=== PATIENT | male | born 1990 | race Caucasian/White ===

== ENCOUNTER 2016-04-03 14:28 | Inpatient (IN) | payer OTHER ==
--- NOTE | ~2016-04-03 | HP ---
Unit #: [id number] #: [id number] Patient: DOMINIC GOEL [id number] [place] [address] [id number] I MR#: [id number] NAME: DOMINIC GOEL. ROOM: P207 Age: 25 Sex: M Admission Date: 04/03/2016 : 1990 Attending Physician: Joelle Huertas M.D. Admitting Physician: Joelle Huertas M.D. Primary Care Physician: Generic Doctor Not In System HISTORY AND PHYSICAL HISTORY OF PRESENT ILLNESS This is a 25-year-old male, admitted to [address] [place] [address] on 04/03/2016 for psychotic behavior and for drug abuse. Getting an accurate history and physical from the patient, due to his psychotic behaviors, some of his information was retrieved from the chart. PAST MEDICAL HISTORY None noted. PAST SURGICAL HISTORY None noted. SOCIAL HISTORY The patient is unemployed. He lives with his mother. He smokes one pack of cigarettes daily. He has a history of polysubstance abuse. FAMILY MEDICAL HISTORY Noncontributory. ALLERGIES No known drug allergies. CURRENT MEDICATIONS The patient is not on any home medications. REVIEW OF SYSTEMS The patient unable to answer questions about review of systems. PHYSICAL EXAMINATION GENERAL: He is in no acute distress. VITAL SIGNS: Temperature 97.6, heart rate 97, respirations 18, and blood pressure 138/93. HEIGHT: 6 feet 3 inches. WEIGHT: 177 pounds. SKIN: Warm and dry without rash or lesion. HEENT: Normocephalic. TMs not viewed. Oral and nasal passages clear. Conjunctivae clear. PERRLA. EOMs intact. NECK: Supple without lymphadenopathy or thyromegaly. HEART: Regular rate and rhythm without murmur. LUNGS: Clear. ABDOMEN: Soft, nontender. : Not done. Unit #: [id number] #: [id number] Patient: DOMINIC GOEL EXTREMITIES: No evidence of cyanosis, clubbing or edema. Moves all without focal deficit. NEUROLOGICAL: Grossly within normal limits. Cranial Nerves: II: Visual adler are intact. III, IV AND : Extraocular movements are intact. Pupils are equal, round and reactive to light. V: Facial sensation is grossly normal. VII: Facial movements and expression are normal. VIII: Auditory acuity grossly intact. IX, X: Uvula is midline. Phonation is normal. XI: Patient shrugs shoulders and turns head normally. XII: Tongue protrudes in the midline. Sensory and Motor Function: Sensory and motor sensation is grossly normal. Motor: moves all extremities well. Coordination: Gait is normal. Deep Tendon Reflexes: Intact. IMPRESSION 1. Psychiatric admission. 2. Nicotine dependence. 3. Polysubstance abuse. RECOMMENDATIONS Psychiatric, per psychiatrist. MEDICAL I see no contraindications to participating in facility's activities. MEDICAL PROGNOSIS Good. MEDICAL CONDITION Stable. Dictated by... Shruthi Cerrato TD: 04/04/2016 07:40 JOB #: [id number] HISTORY AND PHYSICAL X JENIFER LORENZ APRN HISTORY AND PHYSICAL
--- NOTE | ~2016-04-03 | PN ---
Unit #: [id number] #: [id number] Patient: DOMINIC GOEL [id number] [facility] [address] [place] [address] [id number] I MR#: [id number] NAME: DOMINIC GOEL ROOM: P207 Age: 25 Sex: M Admission Date: 04/03/2016 : 1990 Attending Physician: Joelle Huertas M.D. Admitting Physician: Joelle Huertas M.D. Primary Care Physician: Radha Doctor Not In System [facility] PROGRESS NOTES DATE OF SERVICE: 04/05/2016 SUBJECTIVE Mr. Goel is a 25-year-old white male, who was seen today and chart was reviewed and the case was discussed with the staff. He has been anxious and withdrawn, though has not shown any agitation or irritability and has been cooperative with the treatment recommendations as he has been taking the medications and tolerating them fairly well with no reported side effects. MENTAL STATUS EXAMINATION Young white male, who was casually dressed with a fair personal hygiene, appears to be in no acute distress or discomfort. He was awake and alert with impaired attention and concentration. His mood was anxious with a congruent affect. His speech was slow and tangential. His thought processes were disorganized with some looseness of associations and flight of ideas and paranoid ideations and delusional behavior. His insight and judgment remain significantly impaired. TREATMENT PLAN We will continue him on his current medications and we will monitor his response and make further adjustments as needed. Dictated by... Kyle Jha/eileen TD: 04/06/2016 14:56 JOB #: [id number] [facility] PROGRESS NOTES X Joelle Huertas MD PROGRESS NOTE
--- NOTE | ~2016-04-03 | PN ---
Unit #: [id number] #: [id number] Patient: DOMNIIC GOEL [id number] [facility] [address] [place] [address] [id number] I MR#: [id number] NAME: DOMINIC GOEL. ROOM: P207 Age: 25 Sex: M Admission Date: 04/03/2016 : 1990 Attending Physician: Joelle Huertas M.D. Admitting Physician: Joelle Huertas M.D. Primary Care Physician: Radha Doctor Not In System [facility] PROGRESS NOTES DATE OF SERVICE 04/06/2016 DISCUSSION Mr. Goel is a 25-year-old white male who was seen today. Chart was reviewed and case was discussed with the staff. He has been anxious, withdrawn, and rather seclusive to himself. Meanwhile, he has been cooperative with the treatment recommendations and has been taking the medications and tolerating them fairly well with no reported side effects. MENTAL STATUS EXAMINATION A young white male who is casually dressed with fair personal hygiene, appears to be in no acute distress or discomfort. He was awake and alert on interaction with intact orientation. His mood is anxious with a congruent affect. He denies any suicidal or homicidal ideations and also denies any auditory or visual hallucinations. His insight and judgment remain slightly impaired. TREATMENT PLAN 1. We will continue him on his current medications and treatment protocol. We will monitor his response to the medications and make further adjustments as needed. 2. We will continue to follow up. Dictated by... Kyle Jha/jamelg TD: 04/07/2016 15:12 JOB #: [id number] Unit #: [id number] #: [id number] Patient: DOMINIC GOEL [facility] PROGRESS NOTES X Joelle Huertas MD PROGRESS NOTE
--- NOTE | ~2016-04-03 | PN ---
Unit #: [id number] #: [id number] Patient: DOMINIC GOEL [id number] [facility] [address] [place] [address] [id number] I MR#: [id number] NAME: DOMINIC GOEL ROOM: P207 Age: 25 Sex: M Admission Date: 04/03/2016 : 1990 Attending Physician: Joelle Huertas M.D. Admitting Physician: Joelle Huertas M.D. Primary Care Physician: Radha Doctor Not In System [facility] PROGRESS NOTES DATE 04/09/2016 DISCUSSION Mr. Goel is a 25-year-old, white male who was seen today and chart was reviewed and case was discussed with the staff. He has been anxious, withdrawn and seclusive to himself. Meanwhile, he has been cooperative with the treatment recommendations. He has been taking the medication and tolerating them fairly well with no reported side effects. MENTAL STATUS EXAM Young white male who was casually dressed with fair personal hygiene, appears to be in no acute distress or discomfort. He was awake and alert on interaction with intact orientation. His mood was anxious with congruent affect. He denies any suicidal or homicidal ideation. Also, denies any auditory or visual hallucinations. His insight and judgement remains slightly impaired. TREATMENT PLAN We will continue him on his current medications and treatment protocol. We will monitor his response to medication and make further adjustments as needed. Dictated by... Kyle Jha/darci TD: 04/11/2016 21:10 JOB #: [id number] [facility] PROGRESS NOTES X Joelle Huertas MD PROGRESS NOTE
--- NOTE | ~2016-04-03 | PN ---
Unit #: [id number] #: [id number] Patient: DOMINIC GOEL [id number] [facility] [address] [place] [address] [id number] I MR#: [id number] NAME: DOMINIC GOEL. ROOM: P207 Age: 25 Sex: M Admission Date: 04/03/2016 : 1990 Attending Physician: Joelle Huertas M.D. Admitting Physician: Joelle Huertas M.D. Primary Care Physician: Radha Doctor Not In System [facility] PROGRESS NOTES DATE April 08, 2016 DISCUSSION Mr. Goel is a 25-year-old white male, with mood disorder and psychosis, who was seen today and chart was reviewed and the case was discussed with the staff. He has been anxious, withdrawn, and rather seclusive to himself. Meanwhile, he has been cooperative with the treatment recommendations and he has been taking the medications and tolerating them fairly well with no reported side effects. MENTAL STATUS EXAMINATION Young white male, who was casually dressed with fair personal hygiene and appears to be in no acute distress or discomfort. He was awake and alert on interaction with intact orientation. His mood is anxious with a congruent affect. He denies any suicidal or homicidal ideations, and also denies any auditory or visual hallucinations. His insight and judgment remain slightly impaired. TREATMENT PLAN We will continue him on his current medications and treatment protocol, and will monitor his response to the medications, and make further adjustments as needed. Dictated by... Kyle Jha/laci TD: 04/09/2016 08:35 JOB #: [id number] Unit #: [id number] #: [id number] Patient: DOMINIC GOEL [facility] PROGRESS NOTES X Joelle Huertas MD PROGRESS NOTE
--- NOTE | ~2016-04-03 | DS ---
Unit #: [id number] #: [id number] Patient: DOMINIC GOEL [id number] [facility] [address] [place] [address] [id number] I MR#: [id number] NAME: DOMINIC GOEL ROOM: P207 Age: 25 Sex: M Admission Date: 04/03/2016 : 1990 Discharge Date: 04/12/2016 Attending Physician: Joelle Huertas M.D. Primary Care Physician: Generic Doctor Not In System DISCHARGE SUMMARY IDENTIFYING DATA Mr. Goel is a 25-year-old single white male, who is a resident of [place], [place], and was brought to the hospital accompanied by his sister. DISCHARGE DIAGNOSES Psychiatric: Bipolar disorder, most recent episode depressed, recurrent, moderate, with psychosis; methamphetamine dependence, moderate; and psychostimulant dependence, moderate. Medical: None. Stressors: Moderate psychosocial stressors. HISTORY OF PRESENT ILLNESS Please see initial psychiatric evaluation for details. PAST PSYCHIATRIC HISTORY Please see initial psychiatric evaluation for details. PAST MEDICAL HISTORY Please see initial psychiatric evaluation for details. HOSPITAL COURSE The patient was [facility] and was oriented to the hospital environment. Routine p.r.n. medications were initiated, and he was started back on his home medications and medications were adjusted and upon initial presentation, the patient was seen to be acutely psychotic with bizarre behavior and spent the first night in the quiet room and then for the next few days, he was hardly able to talk to me at all or acknowledge me and was seen to be exhibiting significant psychosis, thought blocking, paranoia and delusional behavior. The Zyprexa which was started, he was taking it regularly and tolerating them fairly well and was able to show a slow, but therapeutic response to the medications and was willing to continue treatment on an outpatient basis and as such, it was decided that he will be discharged home and will continue treatment on an outpatient basis. DISCHARGE MEDICATIONS Zyprexa 10 mg b.i.d. for mood disorder. DISCHARGE CONDITION Stable. PROGNOSIS Unit #: [id number] #: [id number] Patient: DOMINIC GOEL Fair. Dictated by... Joelle Huertas M.D. IAA/modl TD: 04/13/2016 00:40 JOB #: [id number] DISCHARGE SUMMARY X Joelle Huertas MD DISCHARGE SUMMARY
--- NOTE | ~2016-04-03 | PN ---
Unit #: [id number] #: [id number] Patient: DOMINIC GOEL [id number] [facility] [address] [place] [address] [id number] I MR#: [id number] NAME: DOMINIC GOEL ROOM: P207 Age: 25 Sex: M Admission Date: 04/03/2016 : 1990 Attending Physician: Joelle Huertas M.D. Admitting Physician: Joelle Huertas M.D. Primary Care Physician: Generic Doctor Not In System [facility] PROGRESS NOTES DATE OF SERVICE 04/10/2016 DISCUSSION Mr. Goel is a 25-year-old white male who was seen today. Chart was reviewed and case was discussed with the staff. He has been anxious and withdrawn though has not shown any agitation or irritability and has been cooperative with treatment recommendations and has been taking the medications and tolerating them fairly well. MENTAL STATUS EXAMINATION Young white male who is casually dressed with fair personal hygiene, appears to be in no acute distress or discomfort. The patient was awake and alert on interaction with intact orientation. His mood is anxious with congruent affect. He denies any suicidal or homicidal ideations. His insight and judgment remain slightly impaired. TREATMENT PLAN We will continue him on his current medications and treatment protocol. We will monitor his response to medication and make further adjustments as needed. Dictated by... Kyle Jha/alex TD: 04/12/2016 06:56 JOB #: [id number] [facility] PROGRESS NOTES X Joelle Huertas MD X PROGRESS NOTE
--- NOTE | ~2016-04-03 | PN ---
Unit #: [id number] #: [id number] Patient: DOMINIC GOEL [id number] [facility] [address] [place] [address] [id number] I MR#: [id number] NAME: DOMINIC GOEL. ROOM: P207 Age: 25 Sex: M Admission Date: 04/03/2016 : 1990 Attending Physician: Joelle Huertas M.D. Admitting Physician: Joelle Huertas M.D. Primary Care Physician: Radha Doctor Not In System [facility] PROGRESS NOTES DATE OF SERVICE: 04/07/2016 SUBJECTIVE Mr. Goel is a 25-year-old white male, with mood disorder and psychosis, who was seen today and chart was reviewed and the case was discussed with the staff. He reports the patient has anxious, restless, withdrawn, disorganized. Meanwhile, he has been cooperative with treatment recommendation and has been taking the medications and tolerating them fairly well with no reported side effects. MENTAL STATUS EXAMINATION Young white male, who was casually dressed with a fair personal hygiene, appears to be in no acute distress or discomfort. He was awake and alert with impaired attention and concentration. His mood was anxious and depressed with a congruent affect. His speech was slow, restricted in content. He denies any suicidal or homicidal ideations and also denies any auditory or visual hallucinations. His insight and judgment remain slightly impaired. TREATMENT PLAN 1. We will continue him on his current medications and treatment protocol. We will monitor his response to medications and make further adjustments as needed. 2. We will continue to follow up. Dictated by... Kyle Jha/eileen TD: 04/08/2016 01:54 JOB #: [id number] Unit #: [id number] #: [id number] Patient: DOMINIC GOEL [facility] PROGRESS NOTES X Joelle Huertas MD PROGRESS NOTE
--- NOTE | ~2016-04-03 | PN ---
Unit #: [id number] #: [id number] Patient: DOMINIC GOEL [id number] [facility] [address] [place] [address] [id number] I MR#: [id number] NAME: DOMINIC GOEL ROOM: P207 Age: 25 Sex: M Admission Date: 04/03/2016 : 1990 Attending Physician: Joelle Huertas M.D. Admitting Physician: Joelle Huertas M.D. Primary Care Physician: Generic Doctor Not In System [facility] PROGRESS NOTES DATE OF SERVICE 04/04/2016 DISCUSSION Mr. Goel is a 25-year-old white male with mood disorder and psychosis and substance abuse who was seen today. Chart was reviewed and case was discussed with the staff who reported the patient had a rough night last night with persistent psychosis and slept in the quiet room after getting p.r.n. medications and has not been able to carry on meaningful conversation and appears to be significantly out of touch with reality and as such we will continue to monitor his response to treatment interventions. We will make further adjustments as needed. Dictated by... Joelle Huertas M.D. IAA/bzg TD: 04/06/2016 07:28 JOB #: [id number] [facility] PROGRESS NOTES X Joelle Huertas MD PROGRESS NOTE
--- NOTE | ~2016-04-03 | PN ---
Unit #: [id number] #: [id number] Patient: DOMINIC GOEL [id number] [facility] [address] [place] [address] [id number] I MR#: [id number] NAME: DOMINIC GOEL ROOM: P207 Age: 25 Sex: M Admission Date: 04/03/2016 : 1990 Attending Physician: Joelle Huertas M.D. Admitting Physician: Joelle Huertas M.D. Primary Care Physician: Radha Doctor Not In System [facility] PROGRESS NOTES DATE OF SERVICE: 04/11/2016 SUBJECTIVE Mr. Goel is a 25-year-old white male who was seen today and chart was reviewed, and case was discussed with the staff. He has been anxious, withdrawn, and rather seclusive to himself. Meanwhile, he has been cooperative with treatment recommendations and has been taking medications and tolerating them fairly well with no reported side effects. MENTAL STATUS EXAMINATION Young white male who was casually dressed with fair personal hygiene, appears to be in no acute distress or discomfort. He was awake and alert on interaction with intact orientation. His mood was anxious with a congruent affect. He denies any suicidal or homicidal ideation. His insight and judgment remain slightly impaired. TREATMENT PLAN 1. We will continue him on his current treatment protocol. We will monitor his response to medications and make further adjustments as needed. 2. We will continue to follow up. Dictated by... Kyle Jha/eileen TD: 04/12/2016 00:19 JOB #: [id number] [facility] PROGRESS NOTES X Joelle Huertas MD PROGRESS NOTE
--- NOTE | ~2016-04-03 | PA ---
Unit #: [id number] #: [id number] Patient: DOMINIC GOEL [id number] [facility] [address] [place] [address] [id number] I MR#: [id number] NAME: DOMINIC GOEL ROOM: P207 Age: 25 Sex: M Admission Date: 04/03/2016 : 1990 Date of Assessment: Attending Physician: Joelle Huertas M.D. Admitting Physician: Joelle Huertas M.D. Primary Care Physician: Generic Doctor Not In System PSYCHIATRIC ASSESSMENT DATE OF SERVICE 04/03/2016. IDENTIFYING DATA Mr. Goel is a 25-year-old single white male, who is a resident of [place], [place], and was brought to the hospital accompanied by his sister. CHIEF COMPLAINT "I thought I was crazy at first." HISTORY OF PRESENT ILLNESS Mr. Goel is a 25-year-old white male with history of substance abuse and mood disorder, who was brought to the hospital by his family with acute psychosis and was denying any symptoms at first and has a long history of substance abuse and dependence, and he stated "I thought I was crazy at first, something is wrong with me, I've been really sick." The patient was unable to give additional report due to mental status changes and acute confusion and psychosis and was seen to be confused and disoriented, and his sister, Frances, reported that the patient has been increasingly paranoid and delusional and he believes that his drinks are being poisoned and he thinks that he is being watched and monitored and thinks someone is out to get his family and calls his mother multiple times everyday asking if she is okay and he barricaded himself in his room and he believes that people are listening to him through the air vents and he has been talking to himself and acting bizarre. When family arrived, he wrote on his form that he was guilty of child molestation and that he has never said that before and there are no children that he has contact with and he has had these types of delusions at times and that he is guilty of a crime and that he has been using multiple substances for years and he has a history of using heroin with multiple overdoses in the past, and it also appears that he has been more recently using some meth and bath salt, which has led to acute substance-induced psychosis. He was seen to be acutely psychotic, agitated, and aggressive upon presentation to the unit and had to be put in seclusion and was put in a therapeutic hold for safety purposes and then he was able to calm himself down. SUBSTANCE ABUSE HISTORY The patient has an extensive history of substance abuse and dependence including alcohol, cannabis, cocaine, acid, opioids, amphetamines, benzodiazepines, and methadone and currently, it appears that he has been using methamphetamine and bath salt on a regular basis. Unit #: [id number] #: [id number] Patient: DOMINIC GOEL PAST PSYCHIATRIC HISTORY The patient has had a history of inpatient psychiatric hospitalization at [facility], and review of the medical records indicate that currently he is not active in any treatment program, is not seeing a psychiatrist, and is not taking any psychotropic medications. PAST MEDICAL HISTORY No acute or chronic medical illnesses. ALLERGIES No known medication allergies. CURRENT MEDICATIONS None. PERSONAL AND SOCIAL HISTORY A 25-year-old white male, who reports that he is single, unemployed, and lives at home with his mother and has fairly decent social support system. MENTAL STATUS EXAMINATION Young white male, who was casually dressed with fair personal hygiene, appears to be in no acute distress or discomfort. He was awake and alert on interaction with intact orientation to time, place, and person. His mood was anxious and depressed with a congruent affect. His speech was slow and restricted in content. His thought processes were disorganized with some looseness of associations, paranoid ideations, and delusional behavior. His insight and judgment remain significantly impaired. DIAGNOSTIC IMPRESSION Psychiatric: Bipolar disorder, most recent episode depressed, recurrent, moderate, with psychosis; methamphetamine dependence, moderate; and psychostimulant dependence, moderate. Medical: None. Stressors: Moderate psychosocial stressors. TREATMENT PLAN 1. The patient has presented with a history of mood disorder and psychosis and has been decompensating and will need inpatient hospitalization for safety and stabilization. We will start him back on his home medications and we will adjust the medications and monitor response. 2. Supportive therapy was provided to the patient. ESTIMATED LENGTH OF STAY 5 to 7 days. ABILITY TO HELP SELF Limited. WILLINGNESS TO HELP SELF The patient appears to be willing to help self. STRENGTHS 1. Communicative. 2. Cooperative. PROBLEMS 1. Chronic dysphoric symptoms. 2. Chronic chemical dependency. Unit #: [id number] #: [id number] Patient: DOMINIC GOEL 3. Poor social support system. DISCHARGE CRITERIA This will be contingent upon the patient's ability to show resolution of his depression and psychosis and his ability to stay safe to himself, particularly after discharge from the hospital. Dictated by... Kyle Jha/eileen TD: 04/04/2016 09:28 JOB #: [id number] PSYCHIATRIC ASSESSMENT X Joelle Huertas MD X PSYCHIATRIC ASSESSMENT
[~2016-04-03 14:28] MED LIST: AMOXIL500 M1 PO; NO MEDICATIONS; XYLOCAINE20 ML 2% V EXT
[2016-04-05 12:32] LABS: BASOPHIL% 0.3 % (0-2.5); EOSINOPHIL# 0.1 X10e3 (0-0.7); EOSINOPHIL% 1.7 % (0.0-7.0); LYMPHOCYTE# 2.1 X10e3 (1.0-3.5); LYMPHOCYTE% 33.9 % (17.0-45.0); MEAN CELL VOLUME 82.8 FL (83-96); MEAN CORPUSCULAR HGB CONC 32.6 g/dL (30-36); MEAN PLATELET VOLUME 9.7 FL (6.5-11.5); MONOCYTE# 0.4 X10e3 (0-1.0); MONOCYTE% 7.2 % (3.0-12.0); NEUTROPHIL# 3.5 X10e3 (1.5-7.1); NEUTROPHIL% 56.9 % (40-75); PLATELET COUNT 320 X10e3 (140-420); RED BLOOD COUNT 5.19 X10e (3.90-5.60); RED CELL DISTRIBUTION WIDTH 15.3 % (11.0-15.5); WHITE BLOOD COUNT 6.2 X10e3 (4.0-10.5)
[2016-04-05 12:40] LABS: DIFF IND NO
[2016-04-05 12:47] LABS: ALBUMIN SERUM 4.3 g/dL (3.5-5.0); ALKALINE PHOSPHATASE 56 U/L (32-92); ALT (SGPT) 49 U/L (10-40); AST (SGOT) 46 U/L (10-42); BILIRUBIN,TOTAL 0.7 mg/dL (0.2-2.0); BLOOD UREA NITROGEN 16 mg/dL (9-23); BUN/CREATININE RATIO 22.85; CALCIUM SERUM 9.8 mg/dL (8.4-10.2); CARBON DIOXIDE 27 mmol/L (22-31); CHLORIDE 104 mmol/L (100-111); CREATININE SERUM 0.7 mg/dL (0.6-1.4); GLOM FILT RATE Estimated ABOVE60 mL/min (>60); GLUCOSE FASTING 90 mg/dL (70-110); POTASSIUM 4.7 mmol/L (3.5-5.1); PROTEIN TOTAL SERUM 7.6 g/dL (6.0-8.3); SODIUM 138 mmol/L (135-145)
[2016-04-05 12:51] LABS: THYROID STIMULATING HORMONE 0.62 uIU/ml (0.34-5.60)
[2016-04-05 12:57] LABS: FREE THYROXIN (T4) 0.91 ng/dL (0.58-1.64)
[2016-04-06 10:12] LABS: URINE APPEARANCE TURBID; URINE BILIRUBIN NEG (NEG); URINE BLOOD NEG (NEG); URINE COLOR YELLOW; URINE GLUCOSE NEG (NEG); URINE KETONE NEG (NEG); URINE LEUKOCYTE ESTERASE NEG (NEG); URINE NITRATE NEG (NEG); URINE PROTEIN NEG (NEG); URINE SPECIFIC GRAVITY 1.024 (1.003-1.035); URINE UROBILINOGEN 0.2 MG/DL (NEG)
[2016-04-06 10:44] LABS: AMPHETAMINE POS (NEG); BARBITURATES NEG (NEG); BENZODIAZEPINES NEG (NEG); COCAINE NEG (NEG); MARIJUANA POS (NEG); OPIATES NEG (NEG); TRICYCLIC ANTIDEPRESSANTS NEG (NEG); U METHADONE NEG (NEG)
== END 2016-04-12 10:45 | DRG 885 ==
LOC: P2S 14:28
PROVIDERS: Psychiatry & Neurology Psychiatry
DX: F31.32 Bipolar disorder, current episode depressed, moderate (principal); F15.20 Other stimulant dependence, uncomplicated; F20.0 Paranoid schizophrenia; Z56.0 Unemployment, unspecified; F17.200 Nicotine dependence, unspecified, uncomplicated
CPT/HCPCS: 80053; 80307; 81003; 84439; 84443; 85025; J1200; J1630

== ENCOUNTER 2016-04-15 20:17 | Inpatient (IN) | payer OTHER ==
--- NOTE | ~2016-04-15 | HP ---
Unit #: [id number] #: [id number] Patient: DOMINIC GOEL [id number] [facility] [address] [place] [address] [id number] I MR#: [id number] NAME: DOMINIC GOEL ROOM: P183 Age: 25 Sex: M Admission Date: 04/15/2016 : 1990 Attending Physician: Joelle Huertas M.D. Admitting Physician: Joelle Huertas M.D. Primary Care Physician: Generic Doctor Not In System HISTORY AND PHYSICAL HISTORY OF PRESENT ILLNESS The patient is a 25-year-old male admitted on on 04/15/2016 for paranoia and psychosis. The patient had a recent admission on 04/03/2016 where a full history and physical was completed. That history and physical has been reviewed. No changes need to be made. Dictated by... Shruthi Cerrato/darci TD: 04/18/2016 00:21 JOB #: [id number] HISTORY AND PHYSICAL X JENIFER LORENZ APRN HISTORY AND PHYSICAL
--- NOTE | ~2016-04-15 | PN ---
Unit #: [id number] #: [id number] Patient: DOMINIC GOEL [id number] [facility] [address] [place] [address] [id number] I MR#: [id number] NAME: DOMINIC GOEL ROOM: P122 Age: 25 Sex: M Admission Date: 04/15/2016 : 1990 Attending Physician: Joelle Huertas M.D. Admitting Physician: Joelle Huertas M.D. Primary Care Physician: Generic Doctor Not In System [facility] PROGRESS NOTES DATE OF SERVICE 04/20/2016 DISCUSSION Mr. Goel is a white male who was seen today. Chart was reviewed and case was discussed with the staff. He has been anxious, withdrawn, and rather seclusive to himself. Meanwhile, he has been cooperative with treatment recommendations. He has been taking the medications and tolerating them fairly well. MENTAL STATUS EXAMINATION Young white male who is casually dressed with fair personal hygiene and appears to be in no acute distress or discomfort. He was awake and alert on interaction with intact orientation. His mood is anxious with a congruent affect. He denies any suicidal or homicidal ideations and also denies any auditory or visual hallucinations. His insight and judgment remain slightly impaired. TREATMENT PLAN We will continue him on his current medications and treatment protocol. We will monitor his response and make further adjustments as needed. Dictated by... Joelle Huertas M.D. IAA/jamelg TD: 04/21/2016 10:36 JOB #: [id number] [facility] PROGRESS NOTES X Joelle Huertas MD PROGRESS NOTE
--- NOTE | ~2016-04-15 | PA ---
Unit #: [id number] #: [id number] Patient: DOMINIC GOEL [id number] [facility] [address] [place] [address] [id number] I MR#: [id number] NAME: DOMINIC GOEL ROOM: P183 Age: 25 Sex: M Admission Date: 04/15/2016 : 1990 Date of Assessment: 04/15/2016 Attending Physician: Joelle Huertas M.D. Admitting Physician: Joelle Huertas M.D. Primary Care Physician: Generic Doctor Not In System PSYCHIATRIC ASSESSMENT DATE OF SERVICE 04/16/2016. IDENTIFYING DATA Mr. Goel is a 25-year-old single white male, who is a resident of [place], [place], and is known to us from previous encounter, was recently discharged from my care and was self-referred back to the hospital. CHIEF COMPLAINT "I came here today because I could not get my medication filled." HISTORY OF PRESENT ILLNESS Mr. Goel is a 25-year-old white male with dual diagnosis of bipolar disorder and methamphetamine dependence, who was recently hospitalized under my care with acute psychosis and was stabilized on Zyprexa; however, since he got out of the hospital, he stated that his [employer] refused to fill his prescription, and once his medicines wore off, he relapsed on methamphetamine that was given to him by a friend and reports that he used methamphetamine yesterday and again earlier in the week and was seen to be paranoid stating that he feels paradoxical and reporting that he feels like he does not feel like he deserves what he is going to get and believes that his mother and stepfather are not really due to the way they are acting and reports that he has been paranoid for a longtime and reported that he did a little bit of ice yesterday and reports that he smoked it "I took a big hit and flushed the rest down in the toilet." The patient reports that the medicine was working and it was blocking his "meth high." He reports that he believes that "we are going to fail him." He also stated that the doctors are denying me to be healthy, "I know what I read is real now, I need my medicine." The patient believed that his medicine is a miracle cure and does not understand why would his insurance deny it. SUBSTANCE ABUSE HISTORY The patient reports history of experimentation with cannabis, opioids, methamphetamine, and benzodiazepine abuse, and more recently, methamphetamine has been his drug of choice. PAST PSYCHIATRIC HISTORY The patient has had a history of multiple inpatient psychiatric hospitalizations at [facility] and other facilities and has been diagnosed and treated for schizoaffective bipolar and currently is supposed to be on Zyprexa, but has not been able to get his medications Unit #: [id number] #: [id number] Patient: DOMINIC GOEL filled and as such has been decompensating. PAST MEDICAL HISTORY The patient's medical history is insignificant. ALLERGIES No known medication allergies. PERSONAL AND SOCIAL HISTORY A 25-year-old white male, who reports that he lives at home with his mother and stepfather and is unemployed and is single and has never been and has no children and has poor social support system. MENTAL STATUS EXAMINATION Young white male, who was casually dressed with fair personal hygiene, appears to be in no acute distress or discomfort. He was awake and alert on interaction with intact orientation to time, place, and person. His mood was anxious and depressed with a congruent affect. His speech was slow and restricted in content. His thought processes were disorganized with some looseness of associations and flight of ideas and paranoid ideations and delusional behavior. His insight and judgment remain significantly impaired. DIAGNOSTIC IMPRESSION Psychiatric: Schizoaffective disorder, bipolar type, most recent episode depressed, recurrent, moderate, with psychosis and methamphetamine dependence, moderate. Medical: None. Stressors: Moderate psychosocial stressors. TREATMENT PLAN 1. The patient has presented with a history of substance abuse and mood disorder and psychosis and has been decompensating and will need inpatient hospitalization for safety and stabilization. We will start him back on his home medications and we will monitor response and make further adjustments as needed. 2. Supportive therapy was provided to the patient. 3. Safe, structured, and nourishing environment will be provided. ESTIMATED LENGTH OF STAY 5 to 7 days. ABILITY TO HELP SELF Limited. WILLINGNESS TO HELP SELF The patient appears to be willing to help self. STRENGTHS 1. Communicative. 2. Cooperative. PROBLEMS 1. Chronic dysphoric symptoms. 2. Chronic chemical dependency. 3. Poor social support system. DISCHARGE CRITERIA This will be contingent upon the patient's ability to show resolution of Unit #: [id number] #: [id number] Patient: DOMINIC GOEL his depression and psychosis and his ability to stay safe to himself, particularly after discharge from the hospital. Dictated by... Kyle Jha/eileen TD: 04/16/2016 11:48 JOB #: [id number] PSYCHIATRIC ASSESSMENT X Joelle Huertas MD X PSYCHIATRIC ASSESSMENT
--- NOTE | ~2016-04-15 | PN ---
Unit #: [id number] #: [id number] Patient: DOMINIC GOEL [id number] [facility] [address] [place] [address] [id number] MR#: [id number] NAME: DOMINIC GOEL ROOM: P122 Age: 25 Sex: M Admission Date: 04/15/2016 : 1990 Attending Physician: Joelle Huertas M.D. Admitting Physician: Joelle Huertas M.D. Primary Care Physician: Radha Doctor Not In System [facility] PROGRESS NOTES DATE OF SERVICE: 04/18/2016 SUBJECTIVE Mr. Goel is a 25-year-old white male with mood disorder and psychosis, who was seen today and chart was reviewed, and case was discussed with the staff. He remains anxious, withdrawn, disorganized, and seclusive to himself with blunted affect and slow to respond with significant thought blocking and paranoia. Meanwhile, he has been taking the medications and tolerating them fairly well. MENTAL STATUS EXAMINATION Young white male who was casually dressed with fair personal hygiene, appears to be in no acute distress or discomfort. He was awake and alert with impaired attention and concentration. His mood was anxious and depressed with a congruent affect. His speech was slow and restricted in content. He reports having suicidal ideation, but denies any homicidal ideations. His thought processes were disorganized with some looseness of associations, paranoid ideations, and delusional behavior. His insight and judgment remain significantly impaired. TREATMENT PLAN 1. We will continue him on his current medications and treatment protocol. We will monitor his response to medications and make further adjustments as needed. 2. We will continue to follow up. Dictated by... Kyle Jha/eileen TD: 04/20/2016 06:53 JOB #: [id number] Unit #: [id number] #: [id number] Patient: DOMINIC GOEL PROGRESS NOTES X Joelle Huertas MD PROGRESS NOTE
--- NOTE | ~2016-04-15 | DS ---
Unit #: [id number] #: [id number] Patient: DOMINIC GOEL [id number] [facility] [address] [place] [address] [id number] I MR#: [id number] NAME: DOMINIC GOEL. ROOM: P122 Age: 25 Sex: M Admission Date: 04/15/2016 : 1990 Discharge Date: 04/20/2016 Attending Physician: Joelle Huertas M.D. Primary Care Physician: Generic Doctor Not In System DISCHARGE SUMMARY IDENTIFYING DATA Mr. Goel is a 25-year-old white male who is known to us from previous encounter, and was self-referred to the hospital. DISCHARGE DIAGNOSES Psychiatric: Bipolar disorder, most recent episode depressed, recurrent, moderate, with psychosis; methenamine dependence, moderate. Medical: None. Stressors: Moderate psychosocial stressors. HISTORY OF PRESENT ILLNESS Please see initial psychiatric evaluation for details. PAST PSYCHIATRIC HISTORY Please see initial psychiatric evaluation for details. PAST MEDICAL HISTORY Please see initial psychiatric evaluation for details. HOSPITAL COURSE The patient was [facility] and was oriented to the hospital environment. Routine p.r.n. medications were initiated and started back on his home medications leave against medical advice. DISCHARGE MEDICATIONS None. DISCHARGE CONDITION Stable. PROGNOSIS Guarded. Dictated by... Kyle Jha/syedal TD: 05/31/2016 13:28 JOB #: [id number] Unit #: [id number] #: [id number] Patient: DOMINIC GOEL DISCHARGE SUMMARY Page 1 of 1 X Joelle Huertas MD DISCHARGE SUMMARY
--- NOTE | ~2016-04-15 | PN ---
Unit #: [id number] #: [id number] Patient: DOMINIC GOEL [id number] [facility] [address] [place] [address] [id number] I MR#: [id number] NAME: DOMINIC GOEL ROOM: P122 Age: 25 Sex: M Admission Date: 04/15/2016 : 1990 Attending Physician: Joelle Huertas M.D. Admitting Physician: Joelle Huertas M.D. Primary Care Physician: Radha Doctor Not In System [facility] PROGRESS NOTES DATE OF SERVICE: 04/17/2016 SUBJECTIVE Mr. Goel is a 25-year-old white male who was seen today and chart was reviewed, and case was discussed with the staff. He appears to be doing fairly well and has been taking medication and tolerating them fairly well with no reported side effects. Meanwhile, he has been taking the medications and tolerating them fairly well with no reported side effects. MENTAL STATUS EXAMINATION Young white male who was casually dressed with fair personal hygiene, appears to be in no acute distress or discomfort. He was awake and alert on interaction with intact orientation. His mood was anxious with a congruent affect. He denies any suicidal or homicidal ideation. His insight and judgment remain slightly impaired. TREATMENT PLAN 1. We will continue him on his current medications and treatment protocol. We will monitor his response and make further adjustments as needed. 2. We will continue to follow up. Dictated by... Kyle Jha/eileen TD: 04/19/2016 02:05 JOB #: [id number] [facility] PROGRESS NOTES X Joelle Huertas MD PROGRESS NOTE
--- NOTE | ~2016-04-15 | PN ---
Unit #: [id number] #: [id number] Patient: DOMINIC GOEL [id number] [facility] [address] [place] [address] [id number] I MR#: [id number] NAME: DOMINIC GOEL ROOM: P122 Age: 25 Sex: M Admission Date: 04/15/2016 : 1990 Attending Physician: Joelle Huertas M.D. Admitting Physician: Joelle Huertas M.D. Primary Care Physician: Generic Doctor Not In System [facility] PROGRESS NOTES DATE OF SERVICE: 04/19/2016 SUBJECTIVE Mr. Goel is a 25-year-old white male with mood disorder and psychosis, who was seen today and chart was reviewed, and case was discussed with the staff. He has been anxious, withdrawn, and rather seclusive to himself. Meanwhile, he has been taking the medications and tolerating them fairly well. We will continue him on his current medications and monitor. Dictated by... Kyle Jha/eileen TD: 04/21/2016 07:15 JOB #: [id number] [facility] PROGRESS NOTES X Joelle Huertas MD PROGRESS NOTE
[2016-04-18 13:31] LABS: AMPHETAMINE POS (NEG); BARBITURATES NEG (NEG); BENZODIAZEPINES NEG (NEG); COCAINE NEG (NEG); MARIJUANA POS (NEG); OPIATES NEG (NEG); TRICYCLIC ANTIDEPRESSANTS NEG (NEG); U METHADONE NEG (NEG)
== END 2016-04-20 14:45 | disposition home or self-care (01) | DRG 885 ==
LOC: P1E 20:17 → P1S 04-18 16:12
PROVIDERS: Psychiatry & Neurology Psychiatry
DX: F25.0 Schizoaffective disorder, bipolar type (principal); F15.20 Other stimulant dependence, uncomplicated; R45.851 Suicidal ideations; F31.32 Bipolar disorder, current episode depressed, moderate; F29 Unspecified psychosis not due to a substance or known physiological condition
CPT/HCPCS: 80307

== ENCOUNTER 2016-04-28 14:47 | Inpatient (IN) | payer OTHER ==
--- NOTE | ~2016-04-28 | PN ---
Unit #: [id number] #: [id number] Patient: DOMINIC GOEL [id number] [facility] [address] [place] [address] [id number] MR#: [id number] NAME: DOMINIC GOEL. ROOM: P132 Age: 25 Sex: M Admission Date: 04/28/2016 : 1990 Attending Physician: Joelle Huertas M.D. Admitting Physician: Joelle Huertas M.D. Primary Care Physician: Generic Doctor Not In System [facility] PROGRESS NOTES DATE May 02, 2016 DISCUSSION Mr. Goel was seen today and chart was reviewed and the case was discussed with the staff. He has been anxious, withdrawn, but has not shown any agitation, irritability, of behavioral problems and he has been calm and cooperative with the treatment recommendations. He has been anxious, withdrawn, and disorganized and with persistent psychosis. MENTAL STATUS EXAMINATION Young white male, who was casually dressed with fair personal hygiene and appears to be in no acute distress or discomfort. He was awake and alert with impaired attention and concentration. His mood is anxious with a congruent affect. His speech is slow and restricted in content. His thought processes are disorganized with some looseness of associations and paranoid ideations. His insight and judgment remain significantly impaired. TREATMENT PLAN 1. We will continue him on his current medications and treatment protocol, and will monitor his response, and make further adjustments as needed. 2. We will continue to followup. Dictated by... Kyle Jha/laci TD: 05/03/2016 12:44 JOB #: [id number] Unit #: [id number] #: [id number] Patient: DOMINIC GOEL [facility] PROGRESS NOTES Page 1 of 1 X Joelle Huertas MD PROGRESS NOTE
--- NOTE | ~2016-04-28 | DS ---
Unit #: [id number] #: [id number] Patient: DOMINIC GOEL [id number] [facility] [address] [place] [address] [id number] I MR#: [id number] NAME: DOMINIC GOEL. ROOM: P132 Age: 25 Sex: M Admission Date: 04/28/2016 : 1990 Discharge Date: 05/03/2016 Attending Physician: Joelle Huertas M.D. Primary Care Physician: Generic Doctor Not In System DISCHARGE SUMMARY IDENTIFYING DATA Mr. Goel is a 25-year-old single white male, who is a resident of [place], [place], and is known to us from previous encounter, was recently discharged from my care and was transferred back to us. DISCHARGE DIAGNOSES Psychiatric: Schizoaffective disorder, bipolar type, most recent episode manic with psychosis; methamphetamine dependence, moderate. Medical: None. Stressors: Moderate psychosocial stressors. HISTORY OF PRESENT ILLNESS Please see initial psychiatric evaluation for details. PAST PSYCHIATRIC HISTORY Please see initial psychiatric evaluation for details. PAST MEDICAL HISTORY Please see initial psychiatric evaluation for details. HOSPITAL COURSE The patient [facility] and was oriented to the hospital environment. Routine p.r.n. medications were initiated and he was started back on home and medications were adjusted and due to his history of poor compliance with medication leading to rapid decompensation, it was decided that he will be a candidate for long-acting injectable antipsychotic, and since he has only been on Risperdal without any allergic reaction, it was decided that he will be started on Invega Sustenna and loading doses were initiated and he was seen to be doing fairly well and was calm and cooperative with treatment recommendation and was taking medications regularly and was tolerating them fairly well and as such, it was decided that he will be discharged home and will continue treatment on an outpatient basis. DISCHARGE MEDICATIONS Invega Sustenna 156 mg intramuscular once a month. DISCHARGE CONDITION Stable. PROGNOSIS Fair. Unit #: [id number] #: [id number] Patient: DOMINIC GOEL Dictated by... Joelle Huertas M.D. IAA/modl TD: 05/03/2016 23:50 JOB #: [id number] DISCHARGE SUMMARY Page 1 of 1 X Joelle Huertas MD DISCHARGE SUMMARY
--- NOTE | ~2016-04-28 | HP ---
Unit #: [id number] #: [id number] Patient: DOMINIC GOEL [id number] [facility] [address] [place] [address] [id number] MR#: [id number] NAME: DOMINIC GOEL ROOM: P132 Age: 25 Sex: M Admission Date: 04/28/2016 : 1990 Attending Physician: Joelle Huertas M.D. Admitting Physician: Joelle Huertas M.D. Primary Care Physician: Generic Doctor Not In System HISTORY AND PHYSICAL HISTORY OF PRESENT ILLNESS The patient is a 25 year old admitted to [address] [place] [address] with psychotic behavior. He is a poor historian, so his history is taken from his chart. The patient was seen and H and P dated 04/04/2016 was reviewed. This is current. No changes. Please see H and P dated 04/04/2016. Dictated by... Martine Joy P.A.-C. for Kyle Avila/alex TD: 04/30/2016 11:21 JOB #: [id number] HISTORY AND PHYSICAL X Martine Joy HISTORY AND PHYSICAL
--- NOTE | ~2016-04-28 | PN ---
Unit #: [id number] #: [id number] Patient: DOMINIC GOEL [id number] [facility] [address] [place] [address] [id number] I MR#: [id number] NAME: DOMINIC GOEL ROOM: P132 Age: 25 Sex: M Admission Date: 04/28/2016 : 1990 Attending Physician: Joelle Huertas M.D. Admitting Physician: Joelle Huertas M.D. Primary Care Physician: Radha Doctor Not In System [facility] PROGRESS NOTES DATE OF SERVICE: 04/29/2016 SUBJECTIVE Mr. Goel is a 25-year-old male, who was seen today and chart was reviewed, and case was discussed with the staff. He has been anxious, withdrawn, though has not shown any agitation or irritability, and has been cooperative with the treatment recommendations and has been taking the medications and tolerating them fairly well with no reported side effects. MENTAL STATUS EXAMINATION Young white male, who was casually dressed with fair personal hygiene, appears to be in no acute distress or discomfort. He was awake and alert on interaction with intact orientation and restricted in content. He denies any suicidal or homicidal ideations, and also denies any auditory or visual hallucinations. His insight and judgment remain slightly impaired. TREATMENT PLAN 1. We will continue him on his current medications and treatment protocol. We will monitor his response to the medications and make further adjustments as needed. 2. We will continue to follow up. Dictated by... Kyle Jha/eileen TD: 04/30/2016 00:52 JOB #: [id number] [facility] PROGRESS NOTES X Joelle Huertas MD PROGRESS NOTE
--- NOTE | ~2016-04-28 | PA ---
Unit #: [id number] #: [id number] Patient: DOMINIC GOEL [id number] [facility] [address] [place] [address] [id number] MR#: [id number] NAME: DOMINIC GOEL ROOM: P132 Age: 25 Sex: M Admission Date: 04/28/2016 : 1990 Date of Assessment: 04/28/2016 Attending Physician: Joelle Huertas M.D. Admitting Physician: Joelle Huertas M.D. Primary Care Physician: Generic Doctor Not In System PSYCHIATRIC ASSESSMENT DATE OF SERVICE 04/28/2016. IDENTIFYING DATA Mr. Goel is a 25-year-old single white male, who is a resident of [place], [place] and he is known to us from previous encounter with history of chronic mental illness, who was recently discharged from my care and was brought back to the hospital by police. CHIEF COMPLAINT "I will call the police because I wanted to get some help." HISTORY OF PRESENT ILLNESS A 25-year-old white male with a history of schizoaffective bipolar disorder and psychosis and substance abuse issues, who was brought to the hospital by police and chemical dependency assessment could not be completed as the patient has a history of substance abuse, but he could not tell the clinician the exact amount of any substance and reports that he used methamphetamine couple of days ago and was unclear about what he has been using. However, he stated "I called the police because I want to get some help. I have not been on any medication. I don't remember how long I have been off them. I feel like I am a bad for not being on my medication. I have committed pretty much every sin there is. I feel there is an epic bowers going on." He was seen to be acutely psychotic and has a history of poor compliance with treatment and outpatient followup and medication as couple of admissions and I put him on Zyprexa and he did feel good, but he could not get the prescription filled on his prescription plan through [employer] and he called me and I recommended that he should come to the outpatient program, but he never did and he decompensated and got hospitalized again with acute psychosis and was then stabilized on Risperdal. He was discharged home. Risperdal was covered on his [employer]. He never got the prescription filled and did not take the medication, now presented again with acute psychosis and has been seen to be increasingly paranoid and he believed that his drinks are poisoned and he thinks that he is being watched and monitored and somebody is out to get him and get his family. He called his mother multiple times every day asking if she is okay. He has dedicated himself in his room and believed that people are listening to him through the air vents. He has been talking to himself and acting bizarre. Upon presentation up to the unit, he was seen to be acutely psychotic and got violent and agitated and aggressive, and code had to be called. He ended up in seclusion and restraints and intramuscular injection of Haldol and Benadryl were given to cut down on psychosis and agitation, and recommendation for inpatient Unit #: [id number] #: [id number] Patient: DOMINIC GOEL level of care was made. SUBSTANCE ABUSE HISTORY The patient has a history of methamphetamine abuse, but he was unable to elaborate details on his chemical dependency issues currently. PAST PSYCHIATRIC HISTORY The patient has had a history of three prior inpatient psychiatric hospitalizations at [facility] and has been diagnosed and treated for mood disorder, psychosis and substance abuse issues, and currently, he is not active in any treatment program and review of the medical records indicate that he was supposed to be on Risperdal and Vistaril, but has been noncompliant with medications. PAST MEDICAL HISTORY No acute or chronic medical illness. ALLERGIES No known medication allergies. PERSONAL AND SOCIAL HISTORY A 25-year-old white male, who reports that he is single, unemployed, and lives by himself and has poor social support system. MENTAL STATUS EXAMINATION Young white male, who was casually dressed with fair personal hygiene, appears to be in no acute distress or discomfort. He was awake and alert on interaction with intact orientation. His mood was anxious and depressed with a congruent affect. His speech was slow and restricted in content. He reports having suicidal ideations and also reports auditory and visual hallucinations. His thought processes were disorganized with some looseness of associations and paranoid ideations and delusional behavior. His insight and judgment remain significantly impaired. DIAGNOSTIC IMPRESSION Psychiatric: Schizoaffective disorder, bipolar type, most recent episode manic with psychosis; methamphetamine dependence, moderate. Medical: None. Stressors: Moderate psychosocial stressors. TREATMENT PLAN 1. The patient has presented with history of chronic mental illness and has been decompensating and will need inpatient hospitalization for safety and stabilization. We will start him back on his home medications. We will adjust the medications and monitor response. 2. Supportive therapy was provided to the patient. 3. Safe, structured, and nourishing environment will be provided. ESTIMATED LENGTH OF STAY 5 to 7 days. ABILITY TO HELP SELF Limited. WILLINGNESS TO HELP SELF The patient appears to be willing to help self. STRENGTHS 1. Communicative. Unit #: [id number] #: [id number] Patient: DOMINIC GOEL 2. Cooperative. PROBLEMS 1. Chronic dysphoric symptoms. 2. Poor social support system. DISCHARGE CRITERIA This will be contingent upon the patient's ability to show resolution of his depression and psychosis and his ability to stay safe to himself, particularly after discharge from the hospital. Dictated by... Kyle Jha/eileen TD: 04/29/2016 09:46 JOB #: [id number] PSYCHIATRIC ASSESSMENT X Joelle Huertas MD X PSYCHIATRIC ASSESSMENT
--- NOTE | ~2016-04-28 | PN ---
Unit #: [id number] #: [id number] Patient: DOMINIC GOEL [id number] [facility] [address] [place] [address] [id number] MR#: [id number] NAME: DOMINIC GOEL. ROOM: P132 Age: 25 Sex: M Admission Date: 04/28/2016 : 1990 Attending Physician: Joelle Huertas M.D. Admitting Physician: Joelle Huertas M.D. Primary Care Physician: Radha Doctor Not In System [facility] PROGRESS NOTES DATE OF SERVICE: 04/30/2016 SUBJECTIVE Mr. Goel is a 25-year-old white male with mood disorder and psychosis, who was seen today and chart was reviewed and the case was discussed with the staff. He has been anxious, withdrawn, and rather seclusive to himself and has been exhibiting some acute psychosis and significant anxiety. Meanwhile, he has been taking the medications and tolerating them fairly well with no reported side effects. MENTAL STATUS EXAMINATION Young white male, who was casually dressed with a fair personal hygiene, appears to be in no acute distress or discomfort. He was awake and alert with impaired attention and concentration. His mood was anxious with a congruent affect. His speech was slow and goal directed. His thought processes were disorganized with some looseness of associations, paranoid ideations, and delusional behavior. His insight and judgment remain significantly impaired. TREATMENT PLAN 1. We will continue him on his current treatment protocol. We will monitor his response to the medications and make further adjustments as needed. 2. We will continue to follow up. Dictated by... Kyle Jha/eileen TD: 04/30/2016 16:16 JOB #: [id number] Unit #: [id number] #: [id number] Patient: DOMINIC GOEL [facility] PROGRESS NOTES X Joelle Huertas MD PROGRESS NOTE
--- NOTE | ~2016-04-28 | PN ---
Unit #: [id number] #: [id number] Patient: DOMINIC GOEL [id number] [facility] [address] [place] [address] [id number] MR#: [id number] NAME: DOMINIC GOEL. ROOM: 32 Age: 25 Sex: M Admission Date: 04/28/2016 : 1990 Attending Physician: Joelle Huertas M.D. Admitting Physician: Joelle Huertas M.D. Primary Care Physician: Radah Doctor Not In System [facility] PROGRESS NOTES DATE OF SERVICE: 05/01/2016 SUBJECTIVE Mr. Goel is a 25-year-old white male with mood disorder with psychosis, who was seen today and chart was reviewed and the case was discussed with the staff. He has been anxious, withdrawn, and rather seclusive to himself and was seen to be slowly pacing the hallways and was unkempt, disheveled, and unable to carry on any meaningful conversation and reporting visual hallucinations. MENTAL STATUS EXAMINATION Young white male, who was casually dressed with marginal personal hygiene and appears to be in no acute distress or discomfort. He was awake and alert with impaired attention and concentration. His mood was anxious with a congruent affect. He denies any suicidal or homicidal ideations. His thought processes were disorganized with some looseness of associations, paranoid ideations, and auditory and visual hallucinations. His insight and judgment remain significantly impaired. TREATMENT PLAN 1. We will continue him on his current medications and treatment protocol and we will monitor his response to the medications and make further adjustments as needed. 2. We will continue to follow up. Dictated by... Kyle Jha/eileen TD: 05/01/2016 17:20 JOB #: [id number] Unit #: [id number] #: [id number] Patient: DOMINIC GOEL [facility] PROGRESS NOTES X Joelle Huertas MD PROGRESS NOTE
[2016-04-29 09:28] LABS: BASOPHIL% 0.7 % (0-2.5); EOSINOPHIL# 0.1 X10e3 (0-0.7); EOSINOPHIL% 2.4 % (0.0-7.0); HEMATOCRIT 43.5 % (38.0-50.0); HEMOGLOBIN 14.5 gm/dL (13.0-16.0); LYMPHOCYTE# 1.6 X10e3 (1.0-3.5); LYMPHOCYTE% 26.4 % (17.0-45.0); MEAN CELL VOLUME 82.6 FL (83-96); MEAN CORPUSCULAR HEMOGLOBIN 27.6 PG (28-34); MEAN CORPUSCULAR HGB CONC 33.4 g/dL (30-36); MEAN PLATELET VOLUME 9.3 FL (6.5-11.5); MONOCYTE# 0.5 X10e3 (0-1.0); NEUTROPHIL# 3.8 X10e3 (1.5-7.1); NEUTROPHIL% 62.5 % (40-75); PLATELET COUNT 264 X10e3 (140-420); RED BLOOD COUNT 5.26 X10e (3.90-5.60); RED CELL DISTRIBUTION WIDTH 15.1 % (11.0-15.5); WHITE BLOOD COUNT 6.1 X10e3 (4.0-10.5)
[2016-04-29 09:45] LABS: THYROID STIMULATING HORMONE 0.72 uIU/ml (0.34-5.60)
[2016-04-29 09:52] LABS: ALBUMIN SERUM 4.2 g/dL (3.5-5.0); ALKALINE PHOSPHATASE 51 U/L (32-92); ALT (SGPT) 255 U/L (10-40); AST (SGOT) 147 U/L (10-42); BILIRUBIN,TOTAL 0.9 mg/dL (0.2-2.0); BLOOD UREA NITROGEN 19 mg/dL (9-23); BUN/CREATININE RATIO 23.75; CALCIUM SERUM 9.1 mg/dL (8.4-10.2); CARBON DIOXIDE 25 mmol/L (22-31); CHLORIDE 104 mmol/L (100-111); CREATININE SERUM 0.8 mg/dL (0.6-1.4); FREE THYROXIN (T4) 1.12 ng/dL (0.58-1.64); GLOM FILT RATE Estimated ABOVE60 mL/min (>60); GLUCOSE FASTING 66 mg/dL (70-110); POTASSIUM 4.6 mmol/L (3.5-5.1); PROTEIN TOTAL SERUM 7.5 g/dL (6.0-8.3); SODIUM 139 mmol/L (135-145)
[2016-04-29 09:56] LABS: DIFF IND NO
== END 2016-05-03 09:30 | disposition home or self-care (01) | DRG 885 ==
LOC: POF 14:47 → P1S 15:00
PROVIDERS: Psychiatry & Neurology Psychiatry
DX: F31.2 Bipolar disorder, current episode manic severe with psychotic features (principal); F15.20 Other stimulant dependence, uncomplicated
CPT/HCPCS: 80053; 84439; 84443; 85025; J1200; J1630

== ENCOUNTER 2016-10-24 16:39 | Emergency (ER) | payer OTHER ==
[~2016-10-24] VITALS: Ht 190.5 cm; Wt 92.5 kg
== END 2016-10-24 18:43 | disposition home or self-care (01) ==
LOC: CFTX 16:39 → CED 16:39 → CFTX 18:05
DX: L02.412 Cutaneous abscess of left axilla (principal); F17.210 Nicotine dependence, cigarettes, uncomplicated; Z98.890 Other specified postprocedural states
CPT/HCPCS: 10060; 99282